=== PATIENT | female | born 1965 | race Caucasian/White ===

== ENCOUNTER → 2016-09-30 | Outpatient (CLI) | payer BC ==
[~2016-09-30] MED LIST: ALAVERT10 M1 PO; ALEVE 220MG220 MG PO; FLONASE NASAL S16 GM NS; LEVORA-28 30 MC1 TA1 PO; METFORMIN500 MG PO; MONONESSA 35 MC1 TA1 PO; MULTIPLE VITAMI1 CAP PO; PROVENTIL0.09 MG/A1 IH; PULMICORT180 MCG/Ac IH; SINGULAIR 110 MG/TAB PO; SINGULAIR5 MG PO; SYMBICORT1 AE2 IH
== END ==
LOC: MC.RAD 07:40
DX: D48.62 Neoplasm of uncertain behavior of left breast (principal)

== ENCOUNTER → 2017-11-04 | Outpatient (CLI) | payer BC | LOC: MC.RAD 07:00 | DX: Z12.31 Encounter for screening mammogram for malignant neoplasm of breast (principal); N63.10 Unspecified lump in the right breast, unspecified quadrant ==

== ENCOUNTER → 2017-11-09 | Outpatient (CLI) | payer BC | LOC: MC.RAD 07:00 | DX: N63.10 Unspecified lump in the right breast, unspecified quadrant (principal) ==

== ENCOUNTER → 2018-11-24 | Outpatient (CLI) | payer BC | LOC: MC.RAD 07:15 | DX: Z12.31 Encounter for screening mammogram for malignant neoplasm of breast (principal) ==

== ENCOUNTER → 2019-12-25 | Outpatient (CLI) | payer BC ==
[~2019-12-25] MED LIST changes: +NATURAL IRON65 MG PO; +OSCAL 500 TAB500 MG PO
== END ==
LOC: MC.RAD 11-26 07:15
DX: Z12.31 Encounter for screening mammogram for malignant neoplasm of breast (principal)

== ENCOUNTER → 2020-01-31 | Outpatient (CLI) | payer BC ==
[~2020-01-31] VITALS: Ht 170.2 cm; Wt 134.5 kg
[2020-01-31 09:13] VITALS: BP 114/70; PULSE 73
== END ==
LOC: LIGHT 11-01 11:48
DX: E66.01 Morbid (severe) obesity due to excess calories (principal); Z68.42 Body mass index [BMI] 45.0-49.9, adult
CPT/HCPCS: G0463

== ENCOUNTER → 2020-04-10 | Outpatient (CLI) | payer BC ==
[~2020-04-10] VITALS: Ht 170.2 cm; Wt 135.9 kg
[~2020-04-10] MED LIST changes: +PHENTERMINE15 MG PO; +TOPAMAX 25MG25 M1 PO
[2020-04-10 14:42] VITALS: BP 134/80; PULSE 72
== END ==
LOC: LIGHT 03-13 10:05
DX: E66.01 Morbid (severe) obesity due to excess calories (principal); Z68.42 Body mass index [BMI] 45.0-49.9, adult; M54.5 Low back pain
CPT/HCPCS: G0463

== ENCOUNTER 2020-05-07 08:00 | Outpatient (RCR) | payer BC | END 2020-05-12 | disposition home or self-care (01) | LOC: WSC | DX: M17.0 Bilateral primary osteoarthritis of knee (principal) ==

== ENCOUNTER → 2020-06-05 | Outpatient (CLI) | payer BC ==
[~2020-06-05] VITALS: Ht 170.2 cm; Wt 134.9 kg
[2020-06-05 16:12] VITALS: BP 130/86; PULSE 76
== END ==
LOC: LIGHT 10:34
DX: E66.01 Morbid (severe) obesity due to excess calories (principal); Z68.42 Body mass index [BMI] 45.0-49.9, adult; M54.5 Low back pain
CPT/HCPCS: G0463

== ENCOUNTER → 2020-12-30 | Outpatient (CLI) | payer BC | LOC: MC.RAD 07:30 | DX: Z12.31 Encounter for screening mammogram for malignant neoplasm of breast (principal) ==

== ENCOUNTER → 2022-01-21 | Outpatient (CLI) | payer BC | LOC: MC.RAD 07:14 | DX: Z12.31 Encounter for screening mammogram for malignant neoplasm of breast (principal) ==